=== PATIENT | male | born 1945 | race Caucasian/White ===

== ENCOUNTER → 2016-12-08 | Outpatient (CLI) | payer BLACK LUNG, MEDICARE, OTHER | LOC: HEART CORB 15:47 | DX: R07.89 Other chest pain (principal); S29.9XXA Unspecified injury of thorax, initial encounter | CPT/HCPCS: 93306 ==

== ENCOUNTER 2021-04-23 18:18 | Inpatient (IN) | payer BLACK LUNG, OTHER ==
[~2021-04-23] VITALS: Ht 182.9 cm; Wt 90.0 kg
[2021-04-23 18:56] LABS: HEMOGLOBIN 14.2 gm/dl (14.0-17.5); RED BLOOD COUNT 4.72 M/UL (4.20-5.50); WHITE BLOOD COUNT 18.6 K/UL (4.5-11.0)
[2021-04-23 19:45] LABS: BUN/CREATININE RATIO 23 (0-10)
[2021-04-24 01:11] LABS: HEMOGLOBIN 13.3 gm/dl (14.0-17.5); WHITE BLOOD COUNT 20.9 K/UL (4.5-11.0)
[2021-04-24 01:14] LABS: RED BLOOD COUNT 4.22 M/UL (4.20-5.50)
[2021-04-24 09:17] LABS: ACINETOBACTER BAUMANNII Not Detected (Negative); CANDIDA ALBICANS Not Detected (Negative); CANDIDA KRUSEI Not Detected (Negative); CANDIDA TROPICALIS Not Detected (Negative); ENTEROCOCCUS Not Detected (Negative); ESCHERICHIA COLI Not Detected (Negative); HAEMOPHILUS INFLUENZAE Not Detected (Negative); KLEBSIELLA OXYTOCA Not Detected (Negative); KLEBSIELLA PNEUMONIAE Not Detected (Negative); KPC-CARBAPENEM-RESISTANCE GENE Not Detected (Negative); PROTEUS Not Detected (Negative); PSEUDOMONAS AERUGINOSA Not Detected (Negative); SERRATIA MARCESANS Not Detected (Negative); STREP AGALACTIAE (GROUP B) Not Detected (Negative); STREP PYOGENES (GROUP A) Not Detected (Negative); STREPTOCOCCUS Not Detected (Negative); mecA (METHICILLIN RESIST GENE Not Detected (Negative); vanA/B (VANCOMYCIN RESIST GENE Not Detected (Negative)
[2021-04-24] MEDS ORDERED: THEOPHYLLINE400 MG PO (10:35)
[2021-04-24] MEDS ORDERED: SYMBICORT 160-1 INHA INH (10:35)
[2021-04-24] MEDS ORDERED: MONTELUKAST SOD10 MG PO (10:36)
[2021-04-24] MEDS ORDERED: FLONASE ALLER15.8 ML (10:36)
[2021-04-24] MEDS ORDERED: ASPIRIN81 MG PO (10:37)
[2021-04-24] MEDS ORDERED: OMEPRAZOLE40 MG PO (10:37)
[2021-04-24 10:40] LABS: STAPHYLOCOCCUS DETECTED (Negative); STAPHYLOCOCCUS AUREUS DETECTED (Negative)
[2021-04-24] MEDS ORDERED: SPIRIVA18 MCG INH (11:44)
[2021-04-24] MEDS ORDERED: POTASSIUM CHLO20 ME2 PO (11:44)
[2021-04-24] MEDS ORDERED: CALTRATE 600 +1 EACH PO (11:45)
[2021-04-24] MEDS ORDERED: ZOCOR40 MG PO (11:47)
[2021-04-24] MEDS ORDERED: LEVOTHYROXINE50 MCG PO (11:47)
[2021-04-24] MEDS ORDERED: FAMOTIDINE40 MG PO (11:48)
[2021-04-24] MEDS ORDERED: FISH OIL 1,0001 EACH PO (11:48)
[2021-04-24] MEDS ORDERED: CLOPIDOGREL75 MG PO (11:48)
[2021-04-25 05:05] LABS: HEMOGLOBIN 12.5 gm/dl (14.0-17.5); RED BLOOD COUNT 4.14 M/UL (4.20-5.50)
[2021-04-25 05:26] LABS: BUN/CREATININE RATIO 22 (0-10)
[2021-04-26 05:25] LABS: HEMOGLOBIN 12.5 gm/dl (14.0-17.5); RED BLOOD COUNT 4.06 M/UL (4.20-5.50); WHITE BLOOD COUNT 16.1 K/UL (4.5-11.0)
[2021-04-26 06:58] LABS: BUN/CREATININE RATIO 28 (0-10)
[2021-04-26] MEDS ORDERED: vancomycin IV (12:29)
[2021-04-26] MEDS ORDERED: MEDROL4 MG PO (12:29)
[2021-04-26] MEDS ORDERED: FERROUS SULFAT325 M2 PO (12:29)
[2021-04-26] MEDS ORDERED: PROAIR HFA8.5 GM INH (12:29)
[2021-04-27 02:45] LABS: HEMOGLOBIN 12.7 gm/dl (14.0-17.5); RED BLOOD COUNT 4.1 M/UL (4.20-5.50); WHITE BLOOD COUNT 14.5 K/UL (4.5-11.0)
[2021-04-27 03:07] LABS: BUN/CREATININE RATIO 33 (0-10)
[2021-04-27] MEDS ORDERED: ADVAIR HFA 115/1 INH INH (08:21)
== END 2021-04-27 12:28 | disposition home health service (06) | DRG 871 ==
LOC: ER1 18:18 → CDU 21:52 → PROG CARE 04-24 14:35
PROVIDERS: Emergency Medicine; Internal Medicine; ADMIT Internal Medicine
PROC: B24BZZZ Ultrasonography of Heart with Aorta (ICD-10-PCS; principal; 2021-04-24)
DX: A41.01 Sepsis due to Methicillin susceptible Staphylococcus aureus (principal); J15.211 Pneumonia due to Methicillin susceptible Staphylococcus aureus; J44.0 Chronic obstructive pulmonary disease with (acute) lower respiratory infection; J44.1 Chronic obstructive pulmonary disease with (acute) exacerbation; N17.9 Acute kidney failure, unspecified; M62.82 Rhabdomyolysis; J96.11 Chronic respiratory failure with hypoxia; E87.2 Acidosis; Z20.822 Contact with and (suspected) exposure to COVID-19; R65.20 Severe sepsis without septic shock; J60 Coalworker's pneumoconiosis; I25.10 Atherosclerotic heart disease of native coronary artery without angina pectoris; F17.210 Nicotine dependence, cigarettes, uncomplicated; E87.6 Hypokalemia; E83.39 Other disorders of phosphorus metabolism; Z88.0 Allergy status to penicillin; Z99.81 Dependence on supplemental oxygen; Z95.5 Presence of coronary angioplasty implant and graft; Z82.49 Family history of ischemic heart disease and other diseases of the circulatory system; Z90.49 Acquired absence of other specified parts of digestive tract
CPT/HCPCS: ECHO; 36415; 36600; 70450; 71045; 71046; 80048; 80053; 80202; 80307; 81001; 82140; 82550; 82553; 82803; 83540; 83550; 83605; 83690; 83735; 83874; 83880; 84100; 84439; 84443; 84484; 85025; 85027; 85610; 85652; 85730; 86140; 87040; 87077; 87086; 87150; 87186; 92610; 93005; 93306; 94640; 94664; 94760; 96374; 96375; 99285; C1751; C9113; G0480; J0692; J0878; J1100; J1650; J2020; J2185; J2543; J2920; J2930; J3370; J3480; J7030; J7050; J7070; U0002